=== PATIENT | female | born 1980 | race Two or more races ===

== ENCOUNTER 2019-10-21 09:21 | Observation (INO) | payer OTHER ==
[~2019-10-21] VITALS: Ht 171.4 cm; Wt 91.6 kg
[2019-10-23] MEDS ORDERED: PREN-96 PO (13:53)
== END 2019-10-21 11:42 | disposition home or self-care (01) | DRG 833 ==
LOC: EDBD 09:21 → LDRP 09:21
PROVIDERS: ADMIT Specialist; ATTEND Specialist
DX: O48.0 Post-term pregnancy (principal); Z3A.00 Weeks of gestation of pregnancy not specified
CPT/HCPCS: 59025; 76818; 81002; G0378